=== PATIENT | male | born 1995 | race Caucasian/White ===

== ENCOUNTER 2024-07-07 23:24 | Emergency (ER) | payer OTHER ==
[~2024-07-07] VITALS: Ht 165.1 cm; Wt 56.7 kg
[2024-07-08] VITALS: BP 125/93; TEMP 99.2; O2SAT 97
[2024-07-08] MEDS ORDERED: TRIA15OI9 TP (00:22)
== END 2024-07-08 00:36 | disposition home or self-care (01) ==
LOC: ER 23:24
DX: M79.651 Pain in right thigh (principal); G43.909 Migraine, unspecified, not intractable, without status migrainosus; Z87.19 Personal history of other diseases of the digestive system